=== PATIENT | male | born 1980 | race Caucasian/White ===

== ENCOUNTER 2018-06-09 10:08 | Emergency (ER) | payer BC, OTHER ==
[~2018-06-09] VITALS: Ht 167.6 cm; Wt 85.3 kg
--- OUTSIDE RECORDS SUMMARY | 2018-06-09 10:32 | XMS REPORT | Clinical Summary ---
Author Author Admin, E Organization [facility] Address Unknown Phone Unavailable Allergies, Adverse Reactions, Alerts Allergy Name Reaction Description Start Date Severity Status Provider No Known Allergies Linda Elder Conditions or Problems Problem Name Problem Code Onset Date Status Entry Date Provider Comment Standard Description Annotate Sterilization-Male V25.2 Active Nery Martin MD Encounter for sterilization Medication List Medication Instructions Start Date Stop Date Generic Name NDC Status Provider Patient Instruction No Drug Therapy Prescribed - none known did ask Linda Elder Advance Directives Directive Description Start Date PERMISSION TO SHARE Vital Signs Date Name Value Unit Range Description blood pressure, diastolic 75 mm[Hg] BP coker blood pressure, systolic 120 mm[Hg] BP sys height E&M 56 [in_us] Bdy height pulse rate E&M 90 /min Heart rate temperature E&M 98.4 [degF] Body temperature weight E&M 187.31 [lb_av] Weight Measured blood pressure, diastolic, repeated by physician 90 BP coker blood pressure, diastolic 90 mm[Hg] BP coker blood pressure, systolic, repeated by physician 138 BP sys blood pressure, systolic 138 mm[Hg] BP sys height E&M 56 [in_us] Bdy height pulse rate E&M 110 /min Heart rate temperature E&M 98.3 [degF] Body temperature weight E&M 187.31 [lb_av] Weight Measured Diagnostic Results Date Name Value Unit Range Description Office Visit: CN-Vasectomy - PMH sexually transmitted disease no risk noted Encounters Code Encounter Date Provider Facility CPT-01680 Level 3 New Patient 10:09:51 CDT Nery Martin MD [facility] Procedures Code Procedure Name Date Entry Date Standard Description CPT-19253 Vasectomy 12:26:08 CDT
--- OUTSIDE RECORDS SUMMARY | 2018-06-09 10:32 | XMS REPORT | Clinical Summary ---
Author Author Admin, E Organization [facility] Address Unknown Phone Unavailable Allergies, Adverse Reactions, [...] noted Encounters Code Encounter Date Provider Facility CPT-46047 Level 3 New Patient 10:09:51 CDT Nery Martin MD [facility] Procedures Code Procedure Name Date Entry Date Standard Description CPT-22632 Vasectomy 12:26:08 CDT
--- OUTSIDE RECORDS SUMMARY | 2018-06-09 10:32 | XMS REPORT | Clinical Summary ---
Author Author Admin, E Organization [facility] Address Unknown Phone Unavailable Allergies, Adverse [...] noted Encounters Code Encounter Date Provider Facility CPT-79910 Level 3 New Patient 10:09:51 CDT Nery Martin MD [facility] Procedures Code Procedure Name Date Entry Date Standard Description CPT-08847 Vasectomy 12:26:08 CDT
--- OUTSIDE RECORDS SUMMARY | 2018-06-09 10:32 | XMS REPORT | Clinical Summary ---
Author Author Admin, E Organization [facility] Address Unknown Phone Unavailable Allergies, Adverse Reactions, [...] noted Encounters Code Encounter Date Provider Facility CPT-00866 Level 3 New Patient 10:09:51 CDT Nery Martin MD [facility] Procedures Code Procedure Name Date Entry Date Standard Description CPT-71142 Vasectomy 12:26:08 CDT
--- OUTSIDE RECORDS SUMMARY | 2018-06-09 10:32 | XMS REPORT | Clinical Summary ---
Author Author Admin, E Organization [facility] Address Unknown Phone Unavailable Allergies, [...] - none known did ask Linda Elder Vital Signs Date Name Value Unit Range [...] noted Encounters Code Encounter Date Provider Facility CPT-77240 Level 3 New Patient 10:09:51 CDT Nery Martin MD [facility] Procedures Code Procedure Name Date Entry Date Standard Description CPT-68874 Vasectomy 12:26:08 CDT
--- OUTSIDE RECORDS SUMMARY | 2018-06-09 10:33 | XMS REPORT | Continuity of Care Document ---
Author Organization Unknown Address Unknown Allergies There is no data. Medications There is no data. Problems There is no data. Procedures There is no data. Results There is no data. Encounters ACCT No. Visit Date/Time Discharge Status Pt. Type Provider Facility Loc./Unit Complaint [id number] 06/08/2018 13:23:02 ACT Unknown
--- OUTSIDE RECORDS SUMMARY | 2018-06-09 10:33 | XMS REPORT | Clinical Summary ---
Author Author Admin, [facility] Organization [facility] Address Unknown Phone Unavailable Allergies, [...] Name Value Unit Range Description blood pressure, diastolic, repeated by physician 90 [...] noted Encounters Code Encounter Date Provider Facility CPT-75179 Level 3 New Patient 10:09:51 CDT Nery Martin MD [facility] Procedures Code Procedure Name Date Entry Date Standard Description CPT-55611 Vasectomy 12:26:08 CDT
--- OUTSIDE RECORDS SUMMARY | 2018-06-09 10:33 | XMS REPORT | Clinical Summary ---
Author Author Admin, [facility] Organization [facility] Address Unknown Phone Unavailable Allergies, Adverse Reactions, [...] noted Encounters Code Encounter Date Provider Facility CPT-48552 Level 3 New Patient 10:09:51 CDT Nery Martin MD [facility]
--- NOTE | 2018-06-09 10:38 | ED Cardiac General ---
History of Present Illness General Chief Complaint: Chest Pain Stated Complaint: SOB; CHEST PALPITATIONS Nursing Triage Note: Patient states that he has been having chest pain/palpatations on and off since Wednesday. He also states that he is short of breath. History of Present Illness Date Seen by Provider: Jun 09, 2018 Time Seen by Provider: 10:22 This is a 37-year-old man with no chronic medical conditions here for palpitations and shortness of breath coming and going for about 5 days. He did mainly noticed this when he was up and moving around, but he states even while talking to me about his symptoms he feels like they recur, when he stops talking about them he feels like the Ezol off. He is not having pain anywhere. He does not have pain when he takes a deep breath. He has never had a stress test, he has never had a blood clot, his legs have not swelled up, no cough, no fever. He was told at one point that his blood pressure was elevated and he was prescribed medication but he states that he never took it. He states that he can feel when his blood pressure is elevated and it feels somewhat like he was feeling today. No drugs or alcohol or abrupt discontinuation of either. No smoking. No family history of heart disease or stroke that he is aware of. Allergies and Home Medications Allergies Coded Allergies: No Known Drug Allergies (Unverified , 06/09/18) Patient Home Medication List Home Medication List Reviewed: Yes Review of Systems Review of Systems Constitutional: no symptoms reported EENTM: No Symptoms Reported Respiratory: See HPI Cardiovascular: See HPI Gastrointestinal: No Symptoms Reported Genitourinary: No Symptoms Reported Musculoskeletal: no symptoms reported Skin: no symptoms reported Psychiatric/Neurological: No Symptoms Reported Endocrine: No Symptoms Reported Hematologic/Lymphatic: No Symptoms Reported Past Wyajlvh-Vgvwgp-Onastr Hx Past Med/Social Hx: Reviewed Nursing Past Med/Soc Hx Patient Social History Recent Foreign Travel: No Contact w/Someone Who Travel: No Recent Infectious Disease Expo: No Physical Abuse: No Sexual Abuse: No Mistreated: No Fear: No Physical Exam Vital Signs Vital Signs - First Documented Capillary Refill : Less Than 3 Seconds Height, Weight, BMI Height: 5'6.00" Weight: 188lbs. oz. 85.374176hy; BMI Method:Stated General Appearance: No Apparent Distress HEENT: PERRL/EOMI, Moist Mucous Membranes Neck: Supple; No JVD Respiratory: Lungs Clear; No Pleural Rub, No Rales, No Rhonci, No Stridor, No Wheezing Cardiovascular: Normal Peripheral Pulses, Tachycardia (regular) Gastrointestinal: Non Tender, Soft Extremity: No Calf Tenderness, No Pedal Edema Neurologic/Psychiatric: Alert, Oriented x3, No Motor/Sensory Deficits, Normal Mood/Affect Skin: Warm/Dry Progress/Results/Core Measures Results/Orders Lab Results Laboratory Tests Test 06/09/18 10:21 06/09/18 12:22 Range/Units White Blood Count 6.2 4.3-11.0 10^3/uL Red Blood Count 5.33 4.35-5.85 10^6/uL Hemoglobin 15.7 13.3-17.7 G/DL Hematocrit 45 40-54 % Mean Corpuscular Volume 85 80-99 FL Mean Corpuscular Hemoglobin 29 25-34 PG Mean Corpuscular Hemoglobin Concent 35 32-36 G/DL Red Cell Distribution Width 13.0 10.0-14.5 % Platelet Count 276 130-400 10^3/uL Mean Platelet Volume 10.0 7.4-10.4 FL D-Dimer < 0.27 0.00-0.49 UG/ML Sodium Level 139 135-145 MMOL/L Potassium Level 3.7 3.6-5.0 MMOL/L Chloride Level 101 98-107 MMOL/L Carbon Dioxide Level 24 21-32 MMOL/L Anion Gap 14 5-14 MMOL/L Blood Urea Nitrogen 19 H 7-18 MG/DL Creatinine 1.05 0.60-1.30 MG/DL Estimat Glomerular Filtration Rate > 60 BUN/Creatinine Ratio 18 Glucose Level 156 H 70-105 MG/DL Calcium Level 9.4 8.5-10.1 MG/DL Corrected Calcium 8.5-10.1 MG/DL Magnesium Level 1.9 1.8-2.4 MG/DL Total Bilirubin 0.4 0.1-1.0 MG/DL Aspartate Amino Transf (AST/SGOT) 22 5-34 U/L Alanine Aminotransferase (ALT/SGPT) 26 0-55 U/L Alkaline Phosphatase 50 40-136 U/L Troponin T < 6 < 6 <=15 NG/L Total Protein 8.1 6.4-8.2 GM/DL Albumin 4.8 H 3.2-4.5 GM/DL My Orders Orders - VANDANA PARDO DO Magnesium (06/09/18 10:11) Chest 1 View Ap/Pa Only (06/09/18 10:11) Ekg Tracing (06/09/18 10:11) Comprehensive Metabolic Panel (06/09/18 10:11) O2 (06/09/18 10:11) Monitor-Rhythm Ecg Trace Only (06/09/18 10:11) Ed Iv/Invasive Line Start (06/09/18 10:11) Cbc No Diff (06/09/18 10:11) Troponin T (06/09/18 10:11) Fibrin Degradation Products (06/09/18 10:33) Ns Iv 1000 Ml (Sodium Chloride 0.9%) (06/09/18 10:33) Troponin T (06/09/18 11:52) Vital Signs/I&O 06/09/18 06/09/18 06/09/18 10:08 10:08 13:08 Temp 98.9 98.7 Pulse 107 72 Resp 16 15 B/P (MAP) 146/72 (96) 146/65 (92) Pulse Ox 98 99 O2 Delivery Room Air Room Air Room Air Blood Pressure Mean: 96 Progress Progress Note : Progress Note Patient feels that his symptoms are likely related to anxiety. 2 troponins were negative. D-dimer is negative. Vitals are stable. Patient is well-appearing, and since coming to the emergency department he has been asymptomatic. He will follow-up with his doctor and will inquire about cardiology follow-up for stress testing as is felt necessary by that seo consultant. Departure Impression Primary Impression: Palpitations Additional Impression: Dyspnea Disposition: 01 HOME, SELF-CARE Condition: Stable Departure-Patient Inst. Patient Instructions: Shortness of Breath (Dyspnea) (DC), Palpitations Work/School Note: Work Release Form Date Seen in the Emergency Department: Jun 09, 2018 Return to Work: Jun 13, 2018 Restrictions: No Restrictions VANDANA PARDO DO Jun 09, 2018 10:37
[2018-06-09 10:39] LABS: HEMOGLOBIN 15.7 G/DL (13.3-17.7); WHITE BLOOD COUNT 6.2 10^3/uL (4.3-11.0)
[2018-06-09] MEDS: NS IV 1000 ML 1,000 ML IV STA (10:39)
--- NOTE | 2018-06-09 10:41 | Diagnostic Imaging Report ---
INDICATION: Chest pain Portable chest 10:18 AM Heart size and pulmonary vascularity are normal. Lungs are clear. There are no effusions or pneumothoraces. IMPRESSION: Negative chest Dictated by: Dictated on workstation # [id number]
[2018-06-09 10:51] LABS: BUN/CREATININE RATIO 18; CARBON DIOXIDE 24 MMOL/L (21-32); CHLORIDE 101 MMOL/L (98-107); CREATININE SERUM 1.05 MG/DL (0.60-1.30); GFR ESTIMATED > 60; GLUCOSE 156 MG/DL (70-105); POTASSIUM 3.7 MMOL/L (3.6-5.0); SODIUM 139 MMOL/L (135-145)
[2018-06-09 10:52] LABS: ALANINE AMINOTRANSFERASE 26 U/L (0-55); ALBUMIN 4.8 GM/DL (3.2-4.5); ALKALINE PHOSPHATASE 50 U/L (40-136); BILIRUBIN,TOTAL 0.4 MG/DL (0.1-1.0); CALCIUM 9.4 MG/DL (8.5-10.1); MAGNESIUM 1.9 MG/DL (1.8-2.4); TOTAL PROTEIN 8.1 GM/DL (6.4-8.2)
[2018-06-09 13:08] VITALS: BP 146/65
== END 2018-06-09 13:08 | disposition home or self-care (01) ==
LOC: ER FS 10:11
DX: R00.2 Palpitations (principal); R06.00 Dyspnea, unspecified
CPT/HCPCS: 36415; 71045; 80053; 83735; 84484; 85027; 85379; 93005; 93041